=== PATIENT | male | born 1950 | race African-American/Black ===

== ENCOUNTER 2017-12-25 07:08 | Inpatient (IN) | payer MEDICARE, OTHER ==
[2017-12-23 17:37] VITALS: BMI 19.6
[2017-12-25] MEDS ORDERED: LIDOCAINE HCL 2% (20ML MULTI-DOSE VIAL) NR ONE (07:48)
[2017-12-25] MEDS ORDERED: HEPARIN NA (PORCINE) 5,000 UNITS/ML 1ML VIAL ONE ×2 (07:48→10:42)
[2017-12-25] MEDS ORDERED: POVIDONE-IODINE OINTMENT 10% - 28.4 GM TUBE ONE (07:48)
[2017-12-25] MEDS ORDERED: MIDAZOLAM HCL 2 MG/2 ML SINGLE DOSE VIAL ONE (09:00)
[2017-12-25] MEDS ORDERED: ROCURONIUM BROMIDE 50 MG/5 ML VIAL ONE (09:01)
[2017-12-25] MEDS ORDERED: PROPOFOL 20 ML ONE ×2 (09:01→10:14)
[2017-12-25] MEDS ORDERED: LIDOCAINE HCL/PF 2% SDV 5ML VIAL ONE ×2 (09:03→09:55)
[2017-12-25] MEDS ORDERED: PROMETHAZINE HCL 25 MG/1 ML VIAL IVPUSH PRN ×2 (09:29→13:02)
[2017-12-25] MEDS ORDERED: ONDANSETRON 4 MG/2 ML VIAL IVPUSH PRN ×2 (09:29→13:02)
[2017-12-25] MEDS ORDERED: LACTATED RINGERS SOLUTION 1,000 ML IV SCH (09:30)
[2017-12-25] MEDS ORDERED: SODIUM CHLORIDE 0.9% P/F 10 ML VIAL IJ ONE ×2 (09:54→10:33)
[2017-12-25] MEDS ORDERED: ceFAZolin SODIUM 1 GM VIAL ONE ×3 (09:54→23:36)
[2017-12-25] MEDS ORDERED: ceFAZolin SODIUM 1 GM VIAL IVPB ONE (10:13)
[2017-12-25] MEDS ORDERED: ePHEDrine SULFATE 50 MG/1 ML AMPULE ONE (10:33)
[2017-12-25] MEDS ORDERED: DEXAMETHASONE SOD PHOSPHATE 4 MG/1 ML VIAL ONE (10:43)
[2017-12-25] MEDS ORDERED: NEOSTIGMINE METHYLSULFATE 0.5 MG/ML - 10 ML MDV ONE (11:40)
[2017-12-25] MEDS ORDERED: GLYCOPYRROLATE 0.2 MG/1 ML VIAL ONE (11:40)
[2017-12-25] MEDS ORDERED: METOPROLOL TARTRATE 5 MG/5 ML VIAL ONE (11:51)
[2017-12-25] MEDS ORDERED: hydrALAZINE HCL 20 MG/ML VIAL ONE (11:55)
--- NOTE | 2017-12-25 11:56 | HP ---
Admitting History and Physical - Admission Chief Complaint: AAA History of Present Illness: 67 year old man with known AAA enlarging slowly, now 5.3 cm. He is traveling outside the [place] and wants repair before leaving. No abdominal pain. 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 Cardiovascular: Yes: HTN, Hyperlipdemia - Past Surgical History Past Surgical History: Yes: Carotid Endarterectomy - Advance Directives Advance Directives: Yes: Health Care Proxy - Smoking History Smoking history: Former smoker Have you smoked in the past 12 months: No If you are a former smoker, when did you quit?: 4yrs ago - Alcohol/Substance Use Hx Alcohol Use: No Home Medications - Allergies Allergies/Adverse Reactions: Allergies Allergy/AdvReac Type Severity Reaction Status Date / Time No Known Drug Allergies Allergy Verified 12/25/17 07:56 - Home Medications Home Medications: Ambulatory Orders Aspirin Coated [Ecotrin -] 81 mg PO DAILY 12/23/17 Brimonidine Tartrate [Alphagan 0.2% -] 1 drop OU BID 12/23/17 Hydrochlorothiazide [Hctz -] 25 mg PO DAILY 12/23/17 Multivitamin [One Daily] 1 each PO DAILY 12/23/17 Simvastatin 80 mg PO HS 12/23/17 Physical Examination Vital Signs: Vital Signs Temperature 97.4 F L 12/25/17 07:35 Pulse Rate 60 12/25/17 07:35 Respiratory Rate 16 12/25/17 07:35 Blood Pressure 108/64 12/25/17 07:35 O2 Sat by Pulse Oximetry (%) 97 12/25/17 07:32 Constitutional: Yes: No Distress Eyes: Yes: WNL HENT: Yes: WNL Neck: Yes: Supple Cardiovascular: Yes: Regular Rate and Rhythm Respiratory: Yes: Regular Gastrointestinal: Yes: Normal Bowel Sounds, Soft Musculoskeletal: Yes: WNL Extremities: Yes: WNL Edema: No Peripheral Pulses WNL: No (no palpable pedal pulses, doppler PT bilat) Problem List - Problems (1) Abdominal aortic aneurysm (AAA) 3.0 cm to 5.5 cm in diameter in male Assessment/Plan: For endovascular repair Code(s): I71.4 - ABDOMINAL AORTIC ANEURYSM, WITHOUT RUPTURE
--- NOTE | 2017-12-25 11:58 | OP ---
Operative Note - Note: Operative Date: 12/25/17 Pre-Operative Diagnosis: AAA Operation: Percutaneous endovascular repair of AAA, main body and 2 docking limbs Findings: Infrarenal AAA with mild stenosis of right external iliac Implants: Cook Zenith stent graft Post-Operative Diagnosis: Same as Pre-op Surgeon: Oscar Gutiérrez Hot Cell Technician: Sam Gaspar Anesthesiologist/FRENCH COMBER: Rob Schuster Anesthesia: General Estimated Blood Loss (mls): 50
--- NOTE | 2017-12-25 12:14 | SURG ---
Surgery Property Analyst Note Property Analyst: Sam Gaspar PA-C Date of Service: 12/25/17 Diagnosis: AAA Procedure: Percutaneous endovascular repair of AAA, main body and 2 docking limbs I was present for the entirety of the operative procedure. For further detail, please refer to operative report. Visit type - Case Type Case Type: Scheduled - New patient This patient is new to me today: Yes Date on this admission: 12/25/17
--- NOTE | 2017-12-25 14:11 | OP ---
DATE OF OPERATION: 12/25/2017 SURGEON: Oscar Gutiérrez MD CUT OUT AND MARKING MACHINE OPERATOR: CHIVO Abad PROCEDURE: Endovascular repair of abdominal aortic aneurysm, percutaneous approach. PREOPERATIVE DIAGNOSIS: Abdominal aortic aneurysm. POSTOPERATIVE DIAGNOSIS: Abdominal aortic aneurysm. ANESTHESIA: General. ANESTHESIOLOGIST: Rob Schuster MD OPERATIVE FINDINGS: There was an infrarenal abdominal aortic aneurysm with a maximum diameter of approximately 5.3 cm. There was mild atherosclerotic disease of the iliac arteries. There was severe atherosclerotic disease of the internal iliac artery on the left and moderate on the right. OPERATIVE PROCEDURE: Following routine patient identification with side and site verification, general anesthesia was induced. Both groins were prepped with ChloraPrep. Timeout was performed. Using real-time duplex imaging, the left common femoral artery was identified. It was patent with a partially calcified wall. The bifurcation was identified and then a site for cannulation proximal to the bifurcation selected. A Micropuncture needle was advanced under ultrasound guidance into the artery and then a Micropuncture wire was advanced through the needle to the iliac artery. The needle was exchanged for a 5-[place] catheter and then the wire was exchanged for a Play Megaphone wire which was advanced into the abdominal aorta. A 6-[place] sheath was then placed over the wire. The right femoral artery was then accessed and cannulated in identical fashion. A double-Perclose closure was then placed using two Perclose devices on each side placed at the 10 o'clock and 2 o'clock positions, but not tightened. An 8-[place] sheath was then exchanged into the femoral artery. The patient was systemically heparinized. A wire and catheter were advanced through the left sheath into the abdominal aorta at the level of the renal arteries. A pigtail marking catheter was advanced over the wire and angiography was performed using a power injector and digital technique. The Cook Zenith main body with a proximal diameter of 26 mm was prepared and exchanged over the right femoral wire and advanced under fluoroscopic guidance into the abdominal aorta. The deployment of the proximal portion of the graft was then performed, after obtaining a magnified view with correction of parallax angiogram to nichole the renal arteries. The graft was positioned just distal to the left renal artery which was the lowest. After placement of the graft, the suprarenal stent was deployed and then the remainder of the graft opened down to the contralateral limb. A wire and catheter were advanced through the left femoral sheath and used to cannulate the contralateral limb opening. The wire was advanced into the suprarenal aorta and then the marking pigtail catheter re-placed over the wire and used to spin within the graft to confirm intraluminal placement. An angiogram through the left femoral sheath was then obtained to nichole the bifurcation of the left iliac artery. The left iliac limb with a diameter of 13 mm was prepared, exchanged over the wire, and deployed from the main body to the level of the iliac bifurcation on the left side. The remainder of the right iliac limb was then deployed. The marking catheter was placed up through the right sheath and angiogram obtained to show the bifurcation of the right iliac artery. A second docking limb was then advanced through the right sheath and deployed down to the bifurcation of the right iliac artery. The graft was then dilated with a Coda balloon at the proximal, distal, and overlapping segments. Completion angiogram was then obtained which showed good flow through the stent graft with no evidence of type I or type II endoleaks. Pigtail catheter was removed. The sheaths were removed with tightening of the Perclose sutures to hemostasis. The wires were removed and the sutures fully tightened and cut. The groin wounds were closed with subcuticular suture of 4-0 Biosyn and Dermabond glue, and the patient was extubated and taken to the recovery room in stable condition. Ru MADRIGAL/[id number]
[2017-12-25] MEDS: LACTATED RINGERS SOLUTION 1,000 ML IV SCH ×2 (14:15→21:53)
[2017-12-25] MEDS ORDERED: oxyCODONE HCL 5 MG TABLET PO PRN ×2 (14:51)
[2017-12-25] MEDS ORDERED: ACETAMINOPHEN 325 MG TABLET (FP) PO PRN ×2 (14:51)
[2017-12-25] MEDS ORDERED: SODIUM CHLORIDE 1,000 ML IV SCH (15:00)
--- NOTE | 2017-12-25 15:13 | CONSULT ---
Consultation: REQUESTING PROVIDER: Dr Gutiérrez CONSULT REQUEST: We have been asked to medically evaluate this patient for admission to the ICU. 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 He presented today for planned EVAR, and he underwent uncomplicated surgery. He was transferred to the ICU for neurovascular monitoring postoperatively. Mr Madrigal reports that his pain is well controlled, and he has no complaints at this time. After transfer to the ICU, he had some oozing blood from his left groin puncture site that resolved with pressure. There was no underlying hematoma or fluctuance. The vascular team was contacted and agreed that there were no current concerns. REVIEW OF SYSTEMS: General: No fevers, no chills, no weight or appetite change, no malaise HEENT: No changes in vision, no changes in hearing, no congestion, no sore throat CV: No chest pain, no palpitations, no LE edema Pulm: No SOB, no cough, no wheezing GI: No nausea or vomiting, no change in bowel habits, no melena : No frequency, no urgency, no dysuria Musc: No back pain, no joint swelling, no recent injury Skin: No rash, no lesions, no erythema Endo: No excessive thirst, no heat/cold intolerance Heme: No unusual bruising or bleeding, no swollen glands Neuro: No syncope, no numbness/tingling, no focal weakness Vasc: No claudication Psych: No recent change in mood, no SI or HI PHYSICAL EXAMINATION Vital Signs - 24 hr 12/25/17 12/25/17 12/25/17 07:32 07:35 12:09 Temperature 97.4 F L 96.2 F L Pulse Rate 60 62 Respiratory 16 14 Rate Blood Pressure 108/64 81/46 L O2 Sat by Pulse 97 10 L Oximetry (%) 12/25/17 12/25/17 12/25/17 12:25 12:40 12:55 Temperature Pulse Rate 72 60 61 Respiratory 18 14 18 Rate Blood Pressure 84/44 L 84/44 L 87/44 L O2 Sat by Pulse 100 100 100 Oximetry (%) 12/25/17 12/25/17 12/25/17 13:10 13:25 13:40 Temperature Pulse Rate 69 66 61 Respiratory 14 12 12 Rate Blood Pressure 88/47 L 90/47 L 94/51 L O2 Sat by Pulse 100 100 100 Oximetry (%) 12/25/17 12/25/17 13:55 14:10 Temperature 97.3 F L Pulse Rate 64 68 Respiratory 16 14 Rate Blood Pressure 97/51 L 97/51 L O2 Sat by Pulse 100 100 Oximetry (%) General: Comfortable, no acute distress, laying flat in bed HEENT: PERRL, EOMI, MMM, voice normal Cards: RRR, no murmur appreciated Pulm: Comfortable on room air, clear to auscultation bilaterally Abd: Soft, nontender, nondistended Wound: B/l groin puncture sites with dermabond in place. Clean, dry. No induration, hematoma, bruising, bleeding. Ext: Atraumatic. No LE edema. ROM intact. Strength 5/5 on LUE, LLE. 4/5 on RUE, RLE. Sensation to light touch intact on dorsal and plantar foot b/l. Bunions on b/l feet. Vasc: Extremities WWP. Palpable radial pulses bilaterally. Palpable left DP. Skin: Normal color, no rashes or lesions Neuro: A&Ox3, CN grossly intact, normal speech, motor/sensory grossly intact and symmetric Psych: Mood appropriate to situation Laboratory Results - last 24 hr 12/25/17 12/25/17 07:18 07:55 Blood Type O NEGATIVE O NEGATIVE Antibody Screen Negative Active Medications Generic Name Dose Route Start Last Admin Trade Name Freq PRN Reason Stop Dose Admin Acetaminophen 325 mg 12/25/17 14:51 Tylenol - PO Q4H PRN FEVER Acetaminophen 650 mg 12/25/17 14:51 Tylenol - PO Q4H PRN FEVER Aspirin 81 mg 12/26/17 10:00 Ecotrin - PO DAILY RIKY Atorvastatin Calcium 40 mg 12/25/17 22:00 Lipitor - PO HS RKIY Brimonidine Tartrate 1 drop 12/25/17 22:00 Alphagan 0.2% - OU BID RIKY Chlorhexidine Gluconate 1 applic 12/25/17 22:00 Hibiclens For Decolonization - TP HS [facility] Fentanyl 50 mcg 12/25/17 13:02 Sublimaze Injection - IVPUSH Q5M PRN PAIN-PACU ORDER X 4 DOSES ONLY Hydrochlorothiazide 25 mg 12/26/17 10:00 Hctz - PO DAILY [facility] Cefazolin Sodium 1 gm/ 50 mls @ 100 mls/hr 12/25/17 18:00 Dextrose IVPB 12/26/17 10:29 Q8H-IV RIKY Lactated Ringer's 1,000 mls @ 125 mls/hr 12/25/17 13:02 Lactated Ringers Solution IV ASDIR [facility] Multivitamins/Minerals/Vitamin C 1 tab 12/26/17 10:00 Tab-A-Vit - PO DAILY RIKY Mupirocin 1 applic 12/25/17 22:00 Bactroban Ointment (For Decolonization) - NS 12/30/17 21:59 BID RIKY Ondansetron HCl 4 mg 12/25/17 13:02 Zofran Injection IVPUSH Q6H PRN NAUSEA AND/OR VOMITING Oxycodone HCl 5 mg 12/25/17 14:51 Roxicodone - PO Q4H PRN PAIN LEVEL 1-5 Oxycodone HCl 10 mg 12/25/17 14:51 Roxicodone - PO Q4H PRN PAIN LEVEL 6-10 Promethazine HCl 12.5 mg 12/25/17 13:02 Phenergan Injection - IVPUSH Q6H PRN NAUSEA-FOR RESCUE AFTER 15 MIN ASSESSMENT/PLAN: Jaime Madrigal is a 67yo man with a PMH of HTN, HLD, CVA with residual right weakness, significant smoking history (quit 2014), and infrarenal 5.2cm AAA now s/p planned EVAR who presents to the ICU for neurovascular monitoring postoperatively. Neuro: - h/o CVA with residual right-sided weaness - Q1hr neurovascular checks postoperatively - Adequate pain control with oxycodone - Tylenol for fever - Continue home brimonidine eyedrops CV: - h/o HTN, HLD - Continue home ASA, atorvastatin, hydrochlorothiazide Pulm: - Significant smoking history - No COPD meds at home; monitor respiratory status - IS 10x per hour Heme: - Monitor hgb postoperatively - Monitor daily CBC GI: - No-salt diet - PRN zofran or compazine Renal: - Voiding appropriately ID: - Perioperative ancef x3 doses Endo: - No issues Musc: - OOB as tolerated PPx: - Low DVT risk, SCD's - No indication for GI ppx FEN: - No salt diet - LR@125 - Replete lytes PRN Dispo: - Monitor in ICU To be discussed with Dr Palacios. Coral Marcano PGY1 Visit type - Emergency Visit Emergency Visit: No - New Patient This patient is new to me today: Yes Date on this admission: 12/25/17 - Critical Care Critical Care patient: Yes Total Critical Care Time (in minutes): 45 Critical Care Statement: The care of this patient involved high complexity decision making to prevent further life threatening deterioration of the patient 's condition and/or to evaluate & treat vital organ system(s) failure or risk of failure.
[2017-12-25] MEDS ORDERED: DEXTROSE 5%-WATER - 50 ML IVPB ONE ×2 (18:40→23:36)
[2017-12-25] MEDS: CEFAZOLIN 1 GM in DEXTROSE 5%-WATER - 50 ML IVPB SCH (18:47)
[2017-12-25] MEDS ORDERED: PT OWN MED DRAWER 7, Y5N ONE (21:42)
[2017-12-25] MEDS: MUPIROCIN 2% TOPICAL OINTMENT FOR DECOLONIZATION NS SCH (21:51)
[2017-12-25] MEDS ORDERED: BRIMONIDINE TARTRATE 0.2% OPHTHALMIC 5 ML BOTTLE OU SCH (22:00)
[2017-12-25] MEDS ORDERED: ATORVASTATIN CA 40 MG TABLET (FP) PO SCH (22:00)
[2017-12-25] MEDS ORDERED: CHLORHEXIDINE GLUCONATE 4% CLEANSER FOR DECOLONIZATION TP SCH (22:00)
[2017-12-25] MEDS ORDERED: PATIENT'S OWN MEDICATION (NON-FORMULARY) (Simvastatin [Simvastatin] 80 MG) PO SCH ×2 (22:00)
[2017-12-25] MEDS: BRIMONIDINE TARTRATE 0.2% OPHTHALMIC 5 ML BOTTLE OU SCH (22:57)
[2017-12-26] MEDS: CEFAZOLIN 1 GM in DEXTROSE 5%-WATER - 50 ML IVPB SCH ×2 (01:15→09:20)
[2017-12-26 06:39] LABS: BASO % 0.3 % (0-2.0); EOS % 0.1 % (0-4.5); HEMATOCRIT 31.2 % (35.4-49); HEMOGLOBIN 10.2 GM/dL (11.7-16.9); LYMPH % 10.8 % (8-40); MCHC 32.8 g/dl (32.0-35.9); MEAN CELL VOLUME 91.4 fl (80-96); MEAN PLT VOLUME 8.5 fl (7.5-11.1); MONO % 9.5 % (3.8-10.2); NEUT % 79.3 % (42.8-82.8); PLATELET COUNT 156 K/MM3 (134-434); RBC 3.42 M/mm3 (4.00-5.60); RDW 13.7 % (11.9-15.9); WHITE BLOOD COUNT 8.9 K/mm3 (4.0-10.0)
[2017-12-26 06:59] LABS: ANION GAP 6 MMOL/L (8-16); BLOOD UREA NITROGEN 12 mg/dL (7-18); CALCIUM 8.1 mg/dL (8.5-10.1); CHLORIDE 106 mmol/L (98-107); CO2 30 mmol/L (21-32); CREATININE 0.8 mg/dL (0.55-1.3); GLUCOSE,RANDOM 97 mg/dL (74-106); MAGNESIUM 1.7 mg/dL (1.8-2.4); PHOSPHOROUS 3.2 mg/dL (2.5-4.9); POTASSIUM 3.7 mmol/L (3.5-5.1); SODIUM 142 mmol/L (136-145)
[2017-12-26 07:01] LABS: INR 1.06 (0.83-1.09); PROTHROMBIN TIME (PATIENT) 12.5 SEC (9.7-13.0)
[2017-12-26 07:04] LABS: ACTIVATED PTT 27.6 SECONDS (25.2-36.5)
--- NOTE | 2017-12-26 07:39 | PN ---
Progress Note (short form) - Note Progress Note: POD #1 s/p Percutaneous endovascular repair of AAA, main body and 2 docking limbs --> intra-op findings: Infrarenal AAA with mild stenosis of right external iliac Alert. Resting comfortably without complaint. He's been OOB to chair. Tolerating PO diet. Voiding spontaneously. Patient's RN states they had a very hard time trying to locate RLE DP via doppler... eventually found but was very weak signal. Denies n/v/f/c. Denies CP, palpitations, SOB or SHARIF. Last Vital Signs Temp Pulse Resp BP Pulse Ox 98 F 56 L 20 143/61 100 12/26/17 02:00 12/26/17 06:00 12/26/17 06:00 12/26/17 06:00 12/25/17 21:00 CBC, BMP 12/26/17 05:30 12/26/17 05:30 Gen: nad ABD: soft. nt. nd. LE: groin stab incisions c/d/i. no hematoma. LLE Dopplerable DP & PT. RLE only dopplerable PT. No ischemic changes. Feet cool bilat (baseline per patient) <Sam Gaspar P - Last Filed: 12/26/17 07:34> - Note Progress Note: As above, no further bleeding from left groin. Pulses are at baseline, right DP was not present preop. Stable Home today <Oscar Gutiérrez - Last Filed: 12/26/17 09:00> Problem List - Problems (1) Endoleak post (EVAR) endovascular aneurysm repair Assessment/Plan: dc IVF Cont diet as tolerated OOB and ambulate ASA daily Pain management PRN Incentive spirometer Code(s): T82.330A - LEAKAGE OF AORTIC (BIFURCATION) GRAFT (REPLACEMENT), INIT <Sam Gaspar P - Last Filed: 12/26/17 07:34> - Problems (1) Abdominal aortic aneurysm (AAA) 3.0 cm to 5.5 cm in diameter in male Code(s): I71.4 - ABDOMINAL AORTIC ANEURYSM, WITHOUT RUPTURE <Oscar Gutiérrez - Last Filed: 12/26/17 09:00>
[2017-12-26] MEDS ORDERED: MAGNESIUM OXIDE 400 MG TABLET (FP) PO ONE (08:11)
[2017-12-26] MEDS ORDERED: POTASSIUM CHLORIDE TABS 20 MEQ TABLET.ER (FP) PO ONE (08:11)
[2017-12-26] MEDS ORDERED: ceFAZolin SODIUM 1 GM VIAL ONE (08:48)
[2017-12-26] MEDS ORDERED: DEXTROSE 5%-WATER - 50 ML IVPB ONE (08:48)
[2017-12-26] MEDS: MUPIROCIN 2% TOPICAL OINTMENT FOR DECOLONIZATION NS SCH (09:21)
[2017-12-26] MEDS: BRIMONIDINE TARTRATE 0.2% OPHTHALMIC 5 ML BOTTLE OU SCH (09:21)
--- NOTE | 2017-12-26 09:37 | PN ---
Physical Exam: SUBJECTIVE: - POD #1 s/p EVAR - Recovering well. Pain well controlled, tolerating diet, voiding spontaneously - OOB to chair this morning OBJECTIVE: Vital Signs Period Temp Pulse Resp BP Sys/Dockery Pulse Ox Last 24 Hr 96.2 F-98.4 F 52-102 12-20 81-182/36-78 10-100 General: Comfortable, no acute distress, laying flat in bed HEENT: PERRL, EOMI, MMM, voice normal Cards: RRR, no murmur appreciated Pulm: Comfortable on room air, clear to auscultation bilaterally Abd: Soft, nontender, nondistended Wound: B/l groin puncture sites with dermabond in place. Clean, dry. No induration, hematoma, bruising, bleeding. Ext: Atraumatic. No LE edema. ROM intact. Strength 5/5 on LUE, LLE. 4/5 on RUE, RLE. Sensation to light touch intact on dorsal and plantar foot b/l. B/l bunions Vasc: Extremities WWP. Palpable radial pulses bilaterally. Palpable left DP. Weakly dopplerable R DP Skin: Normal color, no rashes or lesions Neuro: A&Ox3, CN grossly intact, normal speech, motor/sensory grossly intact and symmetric Psych: Mood appropriate to situation Laboratory Results - last 24 hr 12/26/17 12/26/17 12/26/17 05:30 05:30 05:30 WBC 8.9 RBC 3.42 L Hgb 10.2 L Hct 31.2 L MCV 91.4 MCH 30.0 MCHC 32.8 RDW 13.7 Plt Count 156 MPV 8.5 Absolute Neuts (auto) 7.0 Neutrophils % 79.3 Lymphocytes % 10.8 Monocytes % 9.5 Eosinophils % 0.1 Basophils % 0.3 Nucleated RBC % 0 PT with INR 12.50 INR 1.06 PTT (Actin FS) 27.6 Sodium 142 Potassium 3.7 Chloride 106 Carbon Dioxide 30 Anion Gap 6 L BUN 12 Creatinine 0.8 Creat Clearance w eGFR > 60 Random Glucose 97 Calcium 8.1 L Phosphorus 3.2 Magnesium 1.7 L Active Medications Generic Name Dose Route Start Last Admin Trade Name Freq PRN Reason Stop Dose Admin Acetaminophen 325 mg 12/25/17 14:51 Tylenol - PO Q4H PRN FEVER Acetaminophen 650 mg 12/25/17 14:51 Tylenol - PO Q4H PRN FEVER Aspirin 81 mg 12/26/17 10:00 12/26/17 09:21 Ecotrin - PO 81 mg DAILY RIKY Administration Atorvastatin Calcium 40 mg 12/25/17 22:00 12/25/17 21:48 Lipitor - PO 40 mg HS RIKY Administration Brimonidine Tartrate 1 drop 12/25/17 22:00 12/26/17 09:21 Alphagan 0.2% - OU 1 drop BID RIKY Administration Chlorhexidine Gluconate 1 applic 12/25/17 22:00 12/25/17 21:52 Hibiclens For Decolonization - TP 1 applic HS RIKY Administration Fentanyl 50 mcg 12/25/17 13:02 Sublimaze Injection - IVPUSH Q5M PRN PAIN-PACU ORDER X 4 DOSES ONLY Hydrochlorothiazide 25 mg 12/26/17 10:00 12/26/17 09:20 Hctz - PO 25 mg DAILY RIKY Administration Cefazolin Sodium 1 gm/ 50 mls @ 100 mls/hr 12/25/17 18:00 12/26/17 09:20 Dextrose IVPB 12/26/17 10:29 100 mls/hr Q8H-IV RIKY Administration Multivitamins/Minerals/Vitamin C 1 tab 12/26/17 10:00 12/26/17 09:20 Tab-A-Vit - PO 1 tab DAILY RIKY Administration Mupirocin 1 applic 12/25/17 22:00 12/26/17 09:21 Bactroban Ointment (For Decolonization) - NS 12/30/17 21:59 1 applic BID RIKY Administration Ondansetron HCl 4 mg 12/25/17 13:02 Zofran Injection IVPUSH Q6H PRN NAUSEA AND/OR VOMITING Oxycodone HCl 5 mg 12/25/17 14:51 Roxicodone - PO Q4H PRN PAIN LEVEL 1-5 Oxycodone HCl 10 mg 12/25/17 14:51 Roxicodone - PO Q4H PRN PAIN LEVEL 6-10 Promethazine HCl 12.5 mg 12/25/17 13:02 Phenergan Injection - IVPUSH Q6H PRN NAUSEA-FOR RESCUE AFTER 15 MIN ASSESSMENT/PLAN: Jaime Madrigal is a 67yo man with a PMH of HTN, HLD, CVA with residual right weakness, significant smoking history (quit 2014), and infrarenal 5.2cm AAA now POD #1 s/p planned EVAR. He has recovered well postoperatively and will likely be ready for discharge later today. Neuro: - h/o CVA with residual right-sided weaness - Q1hr neurovascular checks postoperatively overnight, no issues - Adequate pain control with oxycodone - Tylenol for fever - Continue home brimonidine eyedrops CV: - h/o HTN, HLD - Continue home ASA, atorvastatin, hydrochlorothiazide Pulm: - Significant smoking history - No COPD meds at home; monitor respiratory status - IS 10x per hour Heme: - Hgb appropriate postoperatively - Monitor daily CBC GI: - Tolerating diet without issues - PRN zofran or compazine Renal: - Voiding appropriately ID: - Perioperative ancef x3 doses completed Endo: - No issues Musc: - OOB as tolerated PPx: - Low DVT risk, SCD's - No indication for GI ppx FEN: - No salt diet - SLIV - Replete lytes PRN Dispo: - Plan to discharge home today. Will f/o with vascular surgery in 1 week. To be discussed with Dr Palacios. Coral Marcano PGY1 Visit type - Emergency Visit Emergency Visit: No - New Patient This patient is new to me today: No - Critical Care Critical Care patient: Yes Total Critical Care Time (in minutes): 45 Critical Care Statement: The care of this patient involved high complexity decision making to prevent further life threatening deterioration of the patient 's condition and/or to evaluate & treat vital organ system(s) failure or risk of failure.
[2017-12-26] MEDS ORDERED: ASPIRIN COATED 81 MG TABLET.EC PO SCH ×2 (10:00)
[2017-12-26] MEDS ORDERED: HYDROCHLOROTHIAZIDE 25 MG TABLET (FP) PO SCH ×2 (10:00)
[2017-12-26] MEDS ORDERED: MULTIVITAMINS (DAILY MVI) TABLET (FP) PO SCH (10:00)
--- NOTE | 2017-12-26 10:56 | DS ---
Physical Exam: SUBJECTIVE: Patient seen and examined OBJECTIVE: Vital Signs Temperature 98.2 F 12/26/17 10:00 Pulse Rate 75 12/26/17 10:00 Respiratory Rate 20 12/26/17 10:00 Blood Pressure 103/62 12/26/17 10:00 O2 Sat by Pulse Oximetry (%) 100 12/26/17 08:39 PHYSICAL EXAM GENERAL: The patient is awake, alert, and fully oriented, in no acute distress. HEAD: Normal with no signs of trauma. EYES: PERRL, extraocular movements intact, sclera anicteric, conjunctiva clear. ENT: Ears normal, nares patent, oropharynx clear without exudates, moist mucous membranes. NECK: Trachea midline, full range of motion, supple. LUNGS: Breath sounds equal, clear to auscultation bilaterally, no wheezes, no crackles, no accessory muscle use. HEART: Regular rate and rhythm, S1, S2 without murmur, rub or gallop. ABDOMEN: Soft, nontender, nondistended, normoactive bowel sounds, no guarding, no rebound, no hepatosplenomegaly, no masses. EXTREMITIES: warm, well-perfused, no edema. dopplerable DP & PT LLE. RLE PT only (no dopplerable DP prior to surgery) NEUROLOGICAL: Cranial nerves II through XII grossly intact. Normal speech, gait not observed. PSYCH: Normal mood, normal affect. SKIN: Warm, dry, normal turgor, no rashes or lesions noted. LABS CBC,CMP WBC 8.9 K/mm3 (4.0-10.0) 12/26/17 05:30 RBC 3.42 M/mm3 (4.00-5.60) L 12/26/17 05:30 Hgb 10.2 GM/dL (11.7-16.9) L 12/26/17 05:30 Hct 31.2 % (35.4-49) L 12/26/17 05:30 MCV 91.4 fl (80-96) 12/26/17 05:30 MCH 30.0 pg (25.7-33.7) 12/26/17 05:30 MCHC 32.8 g/dl (32.0-35.9) 12/26/17 05:30 RDW 13.7 % (11.9-15.9) 12/26/17 05:30 Plt Count 156 K/MM3 (134-434) 12/26/17 05:30 MPV 8.5 fl (7.5-11.1) 12/26/17 05:30 Absolute Neuts (auto) 7.0 K/mm3 (1.5-8.0) 12/26/17 05:30 Neutrophils % 79.3 % (42.8-82.8) 12/26/17 05:30 Lymphocytes % 10.8 % (8-40) 12/26/17 05:30 Monocytes % 9.5 % (3.8-10.2) 12/26/17 05:30 Eosinophils % 0.1 % (0-4.5) 12/26/17 05:30 Basophils % 0.3 % (0-2.0) 12/26/17 05:30 Nucleated RBC % 0 % (0-0) 12/26/17 05:30 Sodium 142 mmol/L (136-145) 12/26/17 05:30 Potassium 3.7 mmol/L (3.5-5.1) 12/26/17 05:30 Chloride 106 mmol/L (98-107) 12/26/17 05:30 Carbon Dioxide 30 mmol/L (21-32) 12/26/17 05:30 Anion Gap 6 MMOL/L (8-16) L 12/26/17 05:30 BUN 12 mg/dL (7-18) 12/26/17 05:30 Creatinine 0.8 mg/dL (0.55-1.3) 12/26/17 05:30 Creat Clearance w eGFR > 60 (>60) 12/26/17 05:30 Random Glucose 97 mg/dL (74-106) 12/26/17 05:30 Calcium 8.1 mg/dL (8.5-10.1) L 12/26/17 05:30 Phosphorus 3.2 mg/dL (2.5-4.9) 12/26/17 05:30 Magnesium 1.7 mg/dL (1.8-2.4) L 12/26/17 05:30 HOSPITAL COURSE: Date of Admission:12/25/17 Date of Discharge: 12/26/17 The patient was admitted to the ICU s/p elective repair of his infrarenal AAA. Now s/p EVAR sitting in chair at bedside without any complaint. Pain managed with narcotic and non-narcotic pain medications. Usha-operative IV ABX were administered. DVT prophylaxis was achieved with SCDs and early ambulation. Narcotic scripts and or muscle relaxants were checked with [place] [employer] MACHINE OPERATOR prior to escribe. The discharge instructions and an oral pain management plan were reviewed with the patient. All questions answered. Above plan discussed with Dr. Gutiérrez and agreed. Minutes to complete discharge: 35 Visit type - Case Type Case Type: Scheduled
--- NOTE | 2017-12-26 11:15 | PN ---
Progress Note, Physician Chief Complaint: Pt. sitting comfortably in chair, pain controlled, no GA complaints. - Current Medication List Current Medications: Active Medications Acetaminophen (Tylenol -) 325 mg PO Q4H PRN PRN Reason: FEVER Acetaminophen (Tylenol -) 650 mg PO Q4H PRN PRN Reason: FEVER Aspirin (Ecotrin -) 81 mg PO DAILY [facility] Last Admin: 12/26/17 09:21 Dose: 81 mg Atorvastatin Calcium (Lipitor -) 40 mg PO [facility] Last Admin: 12/25/17 21:48 Dose: 40 mg Brimonidine Tartrate (Alphagan 0.2% -) 1 drop OU BID [facility] Last Admin: 12/26/17 09:21 Dose: 1 drop Chlorhexidine Gluconate (Hibiclens For Decolonization -) 1 applic TP [facility] Last Admin: 12/25/17 21:52 Dose: 1 applic Fentanyl (Sublimaze Injection -) 50 mcg IVPUSH Q5M PRN PRN Reason: PAIN-PACU ORDER X 4 DOSES ONLY Hydrochlorothiazide (Hctz -) 25 mg PO DAILY [facility] Last Admin: 12/26/17 09:20 Dose: 25 mg Multivitamins/Minerals/Vitamin C (Tab-A-Vit -) 1 tab PO DAILY [facility] Last Admin: 12/26/17 09:20 Dose: 1 tab Mupirocin (Bactroban Ointment (For Decolonization) -) 1 applic NS BID [facility] Stop: 12/30/17 21:59 Last Admin: 12/26/17 09:21 Dose: 1 applic Ondansetron HCl (Zofran Injection) 4 mg IVPUSH Q6H PRN PRN Reason: NAUSEA AND/OR VOMITING Oxycodone HCl (Roxicodone -) 5 mg PO Q4H PRN PRN Reason: PAIN LEVEL 1-5 Oxycodone HCl (Roxicodone -) 10 mg PO Q4H PRN PRN Reason: PAIN LEVEL 6-10 Promethazine HCl (Phenergan Injection -) 12.5 mg IVPUSH Q6H PRN PRN Reason: NAUSEA-FOR RESCUE AFTER 15 MIN - Objective Vital Signs: Vital Signs Temperature 98.2 F 12/26/17 10:00 Pulse Rate 75 12/26/17 10:00 Respiratory Rate 20 12/26/17 10:00 Blood Pressure 103/62 12/26/17 10:00 O2 Sat by Pulse Oximetry (%) 100 12/26/17 08:39 Constitutional: Yes: Well Nourished, No Distress, Calm Musculoskeletal: Yes: WNL Neurological: Yes: WNL, Alert, Oriented Labs: CBC, BMP 12/26/17 05:30 12/26/17 05:30 INR, PTT INR 1.06 (0.83-1.09) 12/26/17 05:30 Assessment/Plan POD#1 s/p endovasular AAA repair under GA. Doing well. D/C from anesthesia care.
--- NOTE | 2017-12-26 12:01 | PN ---
Teaching Attending Note Name of Resident: Coral Marcano ATTENDING PHYSICIAN STATEMENT I saw and evaluated the patient. I reviewed the resident's note and discussed the case with the resident. I agree with the resident's findings and plan as documented. SUBJECTIVE: Pt seen and examined in the ICU. Pain controlled. Incision sites clean. No shortness of breath or chest pain. OBJECTIVE: Vital Signs Period Temp Pulse Resp BP Sys/[place] Pulse Ox Last 24 Hr 96.2 F-98.4 F 52-102 12-20 81-182/36-78 10-100 Intake & Output 12/23/17 12/24/17 12/25/17 12/26/17 23:59 23:59 23:59 23:59 Intake Total 2620 1130 Output Total 1275 1200 Balance 1345 -70 Weight 71.214 kg 71.214 kg Gen: NAD at rest Heart: RRR Lung: decreased breath sounds at the bases Abd: soft, nontender Ext: no edema CBC, BMP 12/26/17 05:30 12/26/17 05:30 Active Medications Acetaminophen (Tylenol -) 325 mg PO Q4H PRN PRN Reason: FEVER Acetaminophen (Tylenol -) 650 mg PO Q4H PRN PRN Reason: FEVER Aspirin (Ecotrin -) 81 mg PO DAILY [facility] Last Admin: 12/26/17 09:21 Dose: 81 mg Atorvastatin Calcium (Lipitor -) 40 mg PO HS [facility] Last Admin: 12/25/17 21:48 Dose: 40 mg Brimonidine Tartrate (Alphagan 0.2% -) 1 drop OU BID [facility] Last Admin: 12/26/17 09:21 Dose: 1 drop Chlorhexidine Gluconate (Hibiclens For Decolonization -) 1 applic TP HS [facility] Last Admin: 12/25/17 21:52 Dose: 1 applic Fentanyl (Sublimaze Injection -) 50 mcg IVPUSH Q5M PRN PRN Reason: PAIN-PACU ORDER X 4 DOSES ONLY Hydrochlorothiazide (Hctz -) 25 mg PO DAILY [facility] Last Admin: 12/26/17 09:20 Dose: 25 mg Multivitamins/Minerals/Vitamin C (Tab-A-Vit -) 1 tab PO DAILY [facility] Last Admin: 12/26/17 09:20 Dose: 1 tab Mupirocin (Bactroban Ointment (For Decolonization) -) 1 applic NS BID [facility] Stop: 12/30/17 21:59 Last Admin: 12/26/17 09:21 Dose: 1 applic Ondansetron HCl (Zofran Injection) 4 mg IVPUSH Q6H PRN PRN Reason: NAUSEA AND/OR VOMITING Oxycodone HCl (Roxicodone -) 5 mg PO Q4H PRN PRN Reason: PAIN LEVEL 1-5 Oxycodone HCl (Roxicodone -) 10 mg PO Q4H PRN PRN Reason: PAIN LEVEL 6-10 Promethazine HCl (Phenergan Injection -) 12.5 mg IVPUSH Q6H PRN PRN Reason: NAUSEA-FOR RESCUE AFTER 15 MIN ASSESSMENT AND PLAN: Infrarenal AAA s/p EVAR HTN Hyperlipidemia h/o CVA - pain control - PO as tolerated - ASA, statin - DVT prophylaxis - d/c planning
[2017-12-26 12:37] VITALS: BP 164/83; PULSE 72; TEMP 98
== END 2017-12-26 13:32 | disposition home or self-care (01) | DRG 269 ==
LOC: JSAMEDAYSX 07:08 → EDSTATUS 09:00 → JICU 14:44
PROVIDERS: ADMIT Surgery; ATTEND Surgery
PROC: 04V03D6 (ICD-10-PCS; principal; 2017-12-25 09:00)
DX: I71.4 Abdominal aortic aneurysm, without rupture (principal); I69.351 Hemiplegia and hemiparesis following cerebral infarction affecting right dominant side; I10 Essential (primary) hypertension; E78.5 Hyperlipidemia, unspecified
CPT/HCPCS: 36415; 76000-TC-FY; 80048; 83735; 84100; 85025; 85610; 85730; 86850; 86900; 86901; 94760; J1644